=== PATIENT | female | born 1950 | race Caucasian/White ===

== ENCOUNTER 2024-06-19 13:58 | Outpatient (RCR) | payer MEDICARE, BC, SELFPAY ==
--- NOTE | 2024-06-19 16:51 | PT.OPEX ---
[facility] PT [facility] Outpatient Eval Start: 06/19/24 16:07 Freq: Status: Active Protocol: Document 06/19/24 16:13 MATTEO (Rec: 06/19/24 16:42 [email or web address] [id number]) E-signed By Chandrika Goldberg DPT Physical Therapy Outpatient Evaluation Insurance Information Recert Due Date 09/17/24 Insurance Name Medicare B Medical Diagnosis R knee OA, R knee pain R TKA 07/04/24 Treating Diagnosis R knee pain, R knee stiffness, R knee/LE weakness Referring MD Pacheco Subjective Subjective Patient report chronic R Knee pain and recent meniscus tear issues leading up to her R TKA scheduled for 07/04/24. She's had some prior PT for her knee, was doing some of the exercises until about a month ago as they were causing increased pain. Feeling better after stopping the exercises. She is not needing an AD. Has increased pain with twisting, pivoting, lifting activities. Lives with , he is able to assist as needed at home after surgery. OP PT is scheduled in [place] post op. Date of Surgery (If applicable) 07/04/24 Current Work Status Retired Assessment Assessment/Impression Patient is a 73 year old female with chronic R knee pain, R knee stiffness, R knee /LE weakness leading up to R TKA scheduled for 07/04/24. Patient seen in PT today for pre-op session to provide education/information on upcoming TKA surgery, safety information/HO, equipment instruction including use of FWW, and instruction in TKA exercises. Handouts issued for exercises, patient to perform them leading up to surgery. Reviewed PT/OT plan during hospital stay and patient is scheduled for OP PT post op in [place]. Patient lives with spouse, he is able to assist as needed after surgery. Patient lives in split entry home, 7 stairs with L railing up to main level. Tub shower on the main level, walk in shower on the lower level. Patient will try to borrow a FWW, may need one issued at d/c from the hospital. She has a polar ice unit to use after surgery. OP PT scheduled in [place]. Patient seen for pre-op session only. No further PT scheduled at this clinic. Plan of Care Rehabilitation Potential Good Physical Therapy Goals 1. Patient will be educated in TKA pre/post-op safety, mobility, and exercises with HOs provided within one visit with patient scheduled for OP PT post op rehab in [place] after R TKA surgery on 07/04/24. Coordination/Communication With Referral Source Frequency/Duration 1 pre-op session Patient Will Be Discharged From Therapy Completion of LTG(s),Skills Plateau,Independent w/HEP, Independently Progressing Evaluation Billing Untimed Code Treatment Minutes 35 Complexity Low Certification Information Initial Certification Date 06/19/24 Ending Certification Date 09/17/24 Provider Signature Required Yes Provider Signature Shows Agreement With POC & Medical Necessity Physician NPI Number Write NPI# Here Physician Comment/Change : Physician Signature & Date Requested Please Sign/Date Here
== END 2024-10-17 10:53 | disposition home or self-care (01) ==
PROVIDERS: Visit Provider Orthopaedic Surgery
DX: M17.11 Unilateral primary osteoarthritis, right knee (principal); Z96.651 Presence of right artificial knee joint; S83.231A Complex tear of medial meniscus, current injury, right knee, initial encounter; M25.561 Pain in right knee; M25.661 Stiffness of right knee, not elsewhere classified; R53.1 Weakness; Z51.89 Encounter for other specified aftercare
CPT/HCPCS: 97161

== ENCOUNTER 2024-07-04 06:02 | Day surgery (SDC) | payer MEDICARE, BC, SELFPAY ==
[2024-07-04] VITALS (16 sets, daily range): BP systolic 99–124; BP diastolic 48–70; PULSE 57–77; RESP 16–20; TEMP 36–36.4; O2SAT 93–100; BMI 28.0
[2024-07-04] MEDS: MIDAZOLAM HCL 1 MG/ML inj IVP (05:33)
--- OUTSIDE RECORDS SUMMARY | 2024-07-04 06:06 | XMS_ITS | Clinical Summary ---
Author Organization [facility] Address [place], [place] [address] Care Team Providers Care Weight Count Operator Name Role Phone Kamini Shelton DO Primary Care Provider [phone] Allergies Active Allergy Reactions Criticality Noted Date Comments Sulfa (Sulfonamide Antibiotics) Hives 04/2017 Medications Medication Sig Dispensed Refills Start Date End Date Status calcium carbonate/vitamin D3 (CALCIUM WITH VITAMIN D ORAL) Take 1 Tablet by mouth once daily. Active fexofenadine-pseudoeph edrine, 180-240 MG, (Pam-D 24 Hour) 180-240 mg per tablet Take 1 Tablet by mouth once daily. Takes during peak allergy season Active Spkoihdi-Hx-Vjg-Fe-FA tab tablet Take 1 Tablet by mouth once daily. 0 06/30/2022 Active azelastine 137 mcg/actuation (ASTELIN) nasal sprayIndications:Dysfu nction of left eustachian tube Inhale 1 Delmar into affected nostril(s) two times daily. 30 mL 5 09/07/2022 Active fexofenadine (Pam Allergy) 180 mg tablet Take 180 mg by mouth once daily with a meal. Do not crush or chew. Currently takes during none peak allergy season Active Lacto no.76/Bifido/FOS/larch (WOMEN'S PROBIOTIC ORAL) Take by mouth. Active SUMAtriptan (Imitrex) 50 mg tabletIndications:Migr cayla syndrome Take 1 Tablet (50 mg) by mouth 2 times daily if needed for Migraine. Give at minimum 2hrs apart. Max Dose: 200mg per 24hrs. 9 Tablet 2 11/18/2023 Active atorvastatin (LIPITOR) 10 mg tabletIndications:Hype rlipidemia, unspecified hyperlipidemia type Take 1 Tablet (10 mg) by mouth once daily with evening meal. 90 Tablet 3 11/18/2023 Active Active Problems Problem Noted Date Diagnosed Date Prediabetes 06/28/2018 Chronic rhinitis 06/01/2018 Migraine headache 06/24/2017 Osteopenia 06/24/2017 Hypercholesterolemia 04/18/2012 Encounters Date Type Department Care Team Description 06/29/2024 Telephone [facility] [address] [facility] [place] [address] Marilee George, Questions (sent fax) 06/26/2024 1:35 PM CDT Office Visit [facility] [address] [facility] [address] Marilee George, Pre-Op Exam ( RT KNEE MENISCUS REPAIR AND REPLACEMENT, 07/04/24, [facility], [place], ) 06/26/2024 Travel 06/02/2024 9:15 AM CDT Office Visit [facility] [address] [place] [address] Kamini Shelton DO Preoperative Exam (Surg 06/15/2024 Tara/Ortho) 06/02/2024 Orders Only [facility] [address] [place] [address] Kamini Shelton DO 1 scan: (1-Ord) SINUS BRADYCARDIA, 06/02/2024 06/02/2024 Travel 05/02/2024 8:40 AM CDT Office Visit [facility] [address] [place] [address] Adrian Restrepo MD Musculoskeletal Problem (Follow-up RIGHT knee - Chronic Pain/Review MRI ) 05/02/2024 Travel 04/18/2024 8:57 AM CDT - 04/18/2024 11:59 PM CDT Hospital Encounter [facility] [address] [place] [address] Adrian Restrepo MD Chronic pain of right knee 04/18/2024 Travel 04/11/2024 7:25 AM CDT Office Visit [facility] [address] [place], [place] [id number] Adrian Restrepo MD Musculoskeletal Problem (Follow-up RIGHT Knee pain) 04/11/2024 Travel from Last 3 Months Immunizations Name Administration Dates Next Due COVID-19 vaccine (Pfizer-Bio NTech 30mcg/0.3mL) 12YO+ BIVALENT PF, MDV 07/21/2022 COVID-19 vaccine (Pfizer-Bio NTech 30mcg/0.3mL) 12YO+ MICHEAL-SUCROSE PF, MDV 02/04/2022 COVID-19 vaccine (Pfizer-Bio NTech 30mcg/0.3mL) PF, MDV 12/28/2020,12/07/2020 DT (Age < 7 years) 09/02/2004 Influenza A (H1N1), Inactivated 07/18/2010 Influenza A (H1N1), Inactiva angeles (Age >=3 Years) 11/07/2009 Influenza Virus, Unspecified 06/24/2017, 08/11/2016,08/23/2015,2013,06/29/2013,06/29/2012,06/27/2011,1 ,08/18/2009 Influenza, High-dose Inactivated 019,09/24/2018,06/24/2017,2015 Influenza, IIV3 (Age >=3 years) 06/29/2012,07/08,07/25/2010 Influenza, IIV4 06/29/2013 Influenza, IIV4 (=>6mos) MDV 08/23/2015,07/12/20 14 Influenza, Inactivated AIIV4 (Age 65+ Years) Preserv Free 08/24/2023,08/19/2022,07/01/2021,2019 Pneumococcal Poly,23-Valent (Pneumovax) 06/10/2016 Pneumococcal conj 13-Valent (Prevnar 13) 05/09/2015 Td (Age >=7 Years) 09/02/2004 Tdap 05/18/2022,04/18/2012 Zoster (Shingrix-RZV, recombinant) 05/29/2020, Zoster (Zostavax-ZVL, live) 04/18/2012 Family History Medical History Relation Name Comments Cancer-prostate Father age 96 Congenital heart disease Father Heart Disease Father Dementia Mother Osteoporosis Mother Cancer-breast Paternal Aunt x3 Relation Name Status Comments Father Mother Alive Paternal Aunt Alive Paternal Grandmother Social History Tobacco Use Types Packs/Day Years Used Date Smoking Tobacco: Never Smokeless Tobacco: Never Tobacco Cessation:Counseling Given: No Alcohol Use Standard Drinks/Week Comments Yes 0 (1 standard drink = 0.6 oz pur e alcohol) once a month PHQ-2 Answer Date Recorded PHQ-2 TOTAL SCORE 0 11/18/2023 Social Connections Answer Date Recorded Frequency of Communication with Friends and Fami ly 0 11/18/2023 Financial Resource Strain Answer Date R ecorded Difficulty of Paying Living Expenses 3 11/18/2023 Difficulty of Paying Living Expenses Not on file 11/18/2023 Food Insecurity Answer Date Recorded Worried About Running Out of Food in the Last Ye ar 1 11/18/2023 Transportation Needs Answer Date Record ed Lack of Transportation (Medical) 1 11/18/2023 Housing Stability Answer Date Recorded Unable to Pay for Housing in the Last Year 1 11/18/2023 Sex and Gender Information Value Date Recorded Sex Assigned at Not on file Gender Identity Not on file Sexual Orientation Not on file Obstetrics History Last Filed Vital Signs Vital Sign Reading Time Taken Comments Blood Pressure 125/71 06/26/2024 1:40 PM CDT Pulse 70 06/26/2024 1:40 PM CDT Temperature 37.1 ??C (98.8 ??F) 06/30/2022 1:17 PM CD T Respiratory Rate 12 06/02/2024 9:16 AM CDT Oxygen Saturation 99% 06/26/2024 1:40 PM CDT Inhaled Oxygen Concentration - - Weight 71.8 kg (158 lb 6.4 oz) 06/26/2024 1:40 P M CDT Height 161 cm (5' 3.39) 06/26/2024 1:40 PM CDT Body Mass Index 27.72 06/26/2024 1:40 PM CDT Plan of Treatment Health Maintenance Due Date Last Done Comments RSV vaccine for adults or (1 - 1-dose 75+ series) 2023 COVID-19 vaccine series (7 - 2024-25 season) 2024 08/24/2023, 07/21/2022, 02/04/2022, Additional history exists Influenza for age 65+ 06/04/2024 08/24/2023 , 08/19/2022, 07/01/2021, Additional history exists Depression screening for age 12+ 11/18/2024 11/18/2023, 09/09/2022, 09/07/2022, Additional history exists Medicare Wellness for age 65+ 11/18/2024 11/18/2023, 09/07/2022 BMI (ht and wt on same day) for age 18+ 06/26/2025 06/26/2024, 06/02/2024, 11/18/2023 Lipids for age 45-75 11/18/2028 11/18/2023, 09/07/20 Colonoscopy through age 75 10/28/2031 10/28/2021 Tetanus booster 05/18/2032 05/18/2022, 04/03, 09/02/2004 Pneumococcal series for age 65+ Completed 6, 05/09/2015 Zoster (shingles) series for age 50+ Completed 05/29/2020, 03/19/2020, 04/18/2012 Tdap Completed 05/18/2022, 04/18/2012 Hepatitis C screening for ag e 18-79 Completed 09/07/2022 DEXA/DXA scan for age 65+ Completed 09/09/2022 Procedures Procedure Name Priority Date/Time Associated Diagnosis Comments CBC W PLT NO DIFF Routine 06/26/2024 2:1 4 PM CDT Preop examination CBC W PLT NO DIFF Routine 06/02/2024 10: 18 AM CDT Preop examination EKG 12 LEAD Routine 06/02/2024 12:00 AM CDT Preop examination MR KNEE RIGHT WO Routine 04/18/2024 9:41 AM CDT Chronic pain of right knee LIPID PANEL W REFLEX MEASURED LDL Routine 11/18/2023 10:59 AM [facility] Hyperlipidemia, unspecified hyperlipidemia type XR DXA BONE DENSITY 2 SITES AXIAL Routine 09/09/2022 9:16 AM [facility] Postmenopausal ANTI HCV Routine 09/07/2022 9:51 AM [facility] Need for hepatitis C screening test COLONOSCOPY 10/28/2021 11:02 AM [facility] from Last 3 Months or Most Recently Relevant to Health Maintenance Results * CBC W PLT NO DIFF (06/26/2024 2:14 PM CDT) Only the most recent of2 resultswithin the time period is included. WHITE BLOOD CELL COUNT 5.7 3.8 - 10.8 Thousand/u L [facility] RED BLOOD CELL COUNT 4.08 3.80 - 5.10 Million/uL [facility] HEMOGLOBIN 13.3 11.7 - 15.5 g/dL [facility] HEMATOCRIT 39.4 35.0 - 45.0 % [facility] MCV 96.6 80.0 - 100.0 fL [facility] MCH 32.6 27.0 - 33.0 pg [facility] MCHC 33.8 32.0 - 36.0 g/dL [facility] RDW 12.2 11.0 - 15.0 % [facility] PLATELET COUNT 184 140 - 400 Thousand/u L [facility] MPV 11.3 7.5 - 12.5 fL [facility] Blood BLOOD SPECIMEN / Unknown 06/26/2024 2:14 PM CDT 06/26/2024 2:14 PM CDT Marilee George DO HEMATOLOGY [facility] [address] [place] [address], [facility] [address] [place] [address] * EKG 12 LEAD (06/02/2024 12:00 AM CDT) Kamini Shelton DO EKG ORD * MR KNEE RIGHT WO (04/18/2024 9:41 AM CDT) Anatomical Region Laterality Modality KNEE R Magnetic Resonan ce 04/18/2024 1:18 PM CDT Impressions 04/18/2024 1:18 PM CDT 1. Extensive complex medial meniscal tearing. 2. Degenerative arthrosis of the knee with up to full-thickness cartilage loss within the medial compartment and high-grade partial to full-thickness cartilage abnormality focally within the patellofemoral compartment (grade 3 and 4 chondromalacia). 3. Large joint effusion with synovitis. 4. Popliteal cyst. 5. No acute fracture or acute ligamentous abnormality. Dictated by Devonte Turcios MD @ 04/18/2024 1:18:25 PM (Electronically Signed) Narrative 04/18/2024 1:18 PM CDT For Patients: ??As a result of the Century Cures Act, medical imaging exams and procedure reports are released immediately into your electronic medical record. ??You may view this report before your referring provider. ??If you have questions, please contact your health care provider. CLINICAL INDICATION: Chronic right knee pain. COMPARISON STUDIES: Radiographs from 09/03/2023. TECHNICAL: Noncontrast MRI of the right knee. 1.5 nawaf MRI scanner. Axial, sagittal and coronal T1, PD, PD FS and T2 FS images. FINDINGS: MEDIAL COMPARTMENT: Medial Meniscus: Complex tearing of the posterior horn and body of the medial meniscus. The body of the meniscus is medially extruded indicating loss of meniscal hoop stress. Meniscal tearing is well seen on coronal PD fat-sat images number 15 through 21 of series 6. Articular Cartilage: Marginal osteophyte formation. High-grade cartilage wear of the medial femoral condyle and medial tibial plateau with areas of subchondral bone marrow edema (grade 3 and 4). LATERAL COMPARTMENT: Lateral Meniscus: Mild fraying of the free edge of the lateral meniscus. Articular Cartilage: Mild heterogeneity of the articular cartilage compatible with mild softening. PATELLOFEMORAL COMPARTMENT: Articular Cartilage: Small area of high-grade chondromalacia of the proximal central trochlea (grade 3). High-grade chondromalacia of the medial patellar facet superiorly (grade 3 or 4 given the subchondral bone marrow edema). LIGAMENTS: Anterior Cruciate Ligament: Intact. Posterior Cruciate Ligament: Intact. MEDIAL COLLATERAL LIGAMENT AND POSTEROMEDIAL CORNER COMPLEX: Medial Collateral Ligament: Mild medial bowing of the MCL without disruption of the ligament. Medial Head of the Gastrocnemius and Semimembranosus Tendons: Normal. LATERAL COLLATERAL LIGAMENT COMPLEX AND POSTEROLATERAL CORNER COMPLEX: Fibular Collateral Ligament: Normal. Distal Biceps Femoris Tendon Complex: Normal. Iliotibial Band: Normal. Popliteus Tendon: Normal. Posterolateral Corner Capsule: Normal. EXTENSOR MECHANISM: Distal Quadriceps Tendon: Normal. Patellar Tendon: Normal. Medial Patellar Retinaculum and Medial Patellofemoral Ligament: Normal. Lateral Patellar Retinaculum: Normal. Normal patellar alignment. No patella nisreen. Normal trochlear depth. Normal lateral trochlear inclination. JOINT SPACE AND CAPSULE: Large joint effusion with synovitis. BONES AND SOFT TISSUES: Bone marrow edema about the medial compartment. No acute fracture. No avascular necrosis. 2.1 x 1.2 x 4.7 cm popliteal cyst. Subcutaneous edema is present. Procedure Note Devonte Turcios MD - 04/18/2024 For Patients: As a result of the Century Cures Act, medical imagingexams and procedure reports are released immediately into your electronicmedical record. You may view this report before your referring provider.If you have questions, please contact your health care provider. CLINICAL INDICATION: Chronic right knee pain. COMPARISON STUDIES: Radiographs from 09/03/2023. TECHNICAL: Noncontrast MRI of the right knee. 1.5 nawaf MRI scanner. Axial, sagittaland coronal T1, PD, PD FS and T2 FS images. FINDINGS: MEDIAL COMPARTMENT: Medial Meniscus: Complex tearing of the posterior horn and body of themedial meniscus. The body of the meniscus is medially extruded indicatingloss of meniscal hoop stress. Meniscal tearing is well seen on coronal PDfat-sat images number 15 through 21 of series 6. Articular Cartilage: Marginal osteophyte formation. High-grade cartilagewear of the medial femoral condyle and medial tibial plateau with areas ofsubchondral bone marrow edema (grade 3 and 4). LATERAL COMPARTMENT: Lateral Meniscus: Mild fraying of the free edge of the lateral meniscus. Articular Cartilage: Mild heterogeneity of the articular cartilagecompatible with mild softening. PATELLOFEMORAL COMPARTMENT: Articular Cartilage: Small area of high-grade chondromalacia of theproximal central trochlea (grade 3). High-grade chondromalacia of themedial patellar facet superiorly (grade 3 or 4 given the subchondral bonemarrow edema). LIGAMENTS: Anterior Cruciate Ligament: Intact. Posterior Cruciate Ligament: Intact. MEDIAL COLLATERAL LIGAMENT AND POSTEROMEDIAL CORNER COMPLEX: Medial Collateral Ligament: Mild medial bowing of the MCL withoutdisruption of the ligament. Medial Head of the Gastrocnemius and Semimembranosus Tendons: Normal. LATERAL COLLATERAL LIGAMENT COMPLEX AND POSTEROLATERAL CORNER COMPLEX: Fibular Collateral Ligament: Normal. Distal Biceps Femoris Tendon Complex: Normal. Iliotibial Band: Normal. Popliteus Tendon: Normal. Posterolateral Corner Capsule: Normal. EXTENSOR MECHANISM: Distal Quadriceps Tendon: Normal. Patellar Tendon: Normal. Medial Patellar Retinaculum and Medial Patellofemoral Ligament: Normal. Lateral Patellar Retinaculum: Normal. Normal patellar alignment. No patella nisreen. Normal trochlear depth. Normallateral trochlear inclination. JOINT SPACE AND CAPSULE: Large joint effusion with synovitis. BONES AND SOFT TISSUES: Bone marrow edema about the medial compartment. No acute fracture. Noavascular necrosis. 2.1 x 1.2 x 4.7 cm popliteal cyst. Subcutaneous edemais present. IMPRESSION: 1. Extensive complex medial meniscal tearing. 2. Degenerative arthrosis of the knee with up to full-thickness cartilageloss within the medial compartment and high-grade partial tofull-thickness cartilage abnormality focally within the patellofemoralcompartment (grade 3 and 4 chondromalacia). 3. Large joint effusion with synovitis. 4. Popliteal cyst. 5. No acute fracture or acute ligamentous abnormality. Dictated by Devonte Turcios MD @ 04/18/2024 1:18:25 PM (Electronically Signed) Adrian Restrepo MD MR * LIPID PANEL W REFLEX MEASURED LDL (11/18/2023 10:59 AM [facility]) CHOLESTEROL,TOTAL 160 100 - 199 mg/dL 11/18/2023 11:58 AM [facility] Comment: Cholesterol, Total Reference Ranges Desirable <200 mg/dL Borderline 200-239 mg/dL High >=240 mg/dL TRIGLYCERIDES 102 <150 mg/dL 11/18/2023 11:58 AM [facility] HDL CHOLESTEROL 59 >40 mg/dL 11:58 AM [facility] NON-HDL CHOLESTEROL 101 <145 mg/dl 11/18/2023 11:58 AM [facility] CHOL/HDL RATIO 2.71 <4.50 11/18/2023 11:58 AM [facility] LDL CHOLESTEROL 81 <=130 mg/dL 11/18/2023 11:58 AM [facility] VLDL CHOLESTEROL 20 <=30 mg/dL 11/18/2023 11:58 AM [facility] PROVIDER ORDERED STATUS RANDOM 11/18/2023 11:58 AM [facility] Blood BLOOD SPECIMEN / Unknown Venipuncture / Unknown 11/18/2023 10:59 AM [facility] 11/18/2023 11:01 AM [facility] Kamini Shelton DO CHEMISTRY [facility] [address] [place] [address] * XR DXA BONE DENSITY 2 SITES AXIAL [15561.1] (09/09/2022 9:16 AM [facility]) Anatomical Region Laterality Modality Spine, HIPS, HIPL, HIPR Computed Radiography Impressions 09/09/2022 5:14 PM [facility] Osteopenia with lowest T-score -1.7. ??Risk of fracture is not elevated. RECOMMENDATIONS: The National Osteoporosis Foundation recommends pharmacologic treatment for patients with T-scores of -2.5 or less, patients with prior history of fragility fractures, or patients with 10-year probability of greater than 3% at hips or greater than 20% of suffering major osteoporotic fractures. Recommend continued optimization of calcium and vitamin D intake through dietary means and/or supplementation and regular exercise. Repeat scan recommended in 5-7 years. Narrative 09/09/2022 5:14 PM [facility] For Patients: Results are automatically released to your [employer] account once available, in compliance with federal regulations. This means that you may see your results before your provider has had a chance to review them. Please allow 2-3 business days for your provider to comment on the results. XR DXA Bone Mineral Density (BMD) EXAM LOCATION: [address] [address] PATIENT NAME: Paola Granado DATE OF : 1950 EXAM DATE: 09/09/2022 REQUESTING PROVIDER: Fausto Barry, GENDER AT : female HEIGHT: 5' 2.6 (10/16/2021) WEIGHT: ??169 lb 14.4 oz (09/07/2022) MENOPAUSAL STATUS: Postmenopausal RACE/ETHNICITY: White RISK FACTORS: Family History of Osteoporosis CURRENT MEDICATION FOR BONE LOSS: NONE INDICATION: Postmenopausal COMPARISON DATE(S): None DXA scans are compared to prior studies for a patient only when the two (or more) studies were performed on the same scanner. It is not possible to compare data generated on one scanner to data from another because there are not standards in DXA equipment. This applies even if the two scanners are made by the same javascript developer. PROCEDURE: Dual-energy x-ray absorptiometry performed with routine technique. Reporting is completed in the form of a T-score. The T-score represents the standard deviation from peak bone mass based on young healthy adult. A Z-score is used for diagnosis in premenopausal women, and for men under the age of 50. FINDINGS: RESULT LUMBAR SPINE L1 - L4 BMD: 1.135 g/cm2 T-Score: - 0.3 RESULTS FEMUR Left femoral neck BMD: 0.806 g/cm2 T-Score: - 1.7 Right femoral neck BMD: 0.902 g/cm2 T-Score: - 1.0 Left hip BMD: 0.930 g/cm2 T-Score: - 0.6 Right hip BMD: 0.996 g/cm2 T-Score: - 0.1 WHO criteria: Normal: T-score at or above -1 SD Osteopenia: T-score between -1.1 and -2.4 SD Osteoporosis: T-score at or below -2.5 SD FRAX RISK CALCULATION (USED FOR OSTEOPENIA ONLY): 10-year probability of major osteoporotic fracture: 11.2%. 10-year probability of hip fracture: 2.3%. Fausto Barry DO DEXA * ANTI HCV (09/07/2022 9:51 AM [facility]) HEPATITIS C ANTIBODY Non-React shay Non-React shay 09/08/2022 1:14 AM [facility] Comment:Antibodies to HCV no t detected; does not exclude the possibility of exposure to HCV. Blood BLOOD SPECIMEN / Unknown Venipuncture / Unknown 09/07/2022 9:51 AM [facility] 09/07/2022 9:53 AM [facility] Fausto Barry DO SEND OUTS [facility] [address] [place] [address], * COLONOSCOPY (10/28/2021 11:02 AM W[facility] DIAL [facility]ON[facility]) 10/28/2021 11:0 2 AM [facility] Narrative Transcriptions FromJem bertrand MD - 10/28/2021 11:29 AM CST Patient Name: Paola Loy Procedure Date: 10/28/2021 Gender: Female Date of : 1950 Admit Type: Ambulatory Procedure: Colonoscopy Proceduralist: Santosh Amos MD [facility] Indications/Pre-Op Diagnosis: Screening for colorectal malignantneoplasm Medications: Propofol per Anesthesia Procedure Description: The procedure, indications, potential complications, (bleeding, perforation, infection, adverse medication reaction, missed lesionsor polyps) and alternatives available were explained to the patient, who appeared to understand and indicated this. Opportunity for questionswas provided and informed consent obtained. The colonoscope was passed through the anus and advanced to thececum, identified by appendiceal orifice and ileocecal valve. Thecolonoscopy was performed with ease. The patient tolerated the procedure well.The quality of the bowel preparation was evaluated using the BBPS ([place] Bowel Preparation Scale) with scores of: Right Colon = 3, Transverse Colon = 3 and Left Colon = 3 (entire mucosa seen well with noresidual staining, small fragments of stool or opaque liquid). The total BBPS score equals 9. Complications: No immediate complications. Estimated Blood Loss & Specimen: Estimated blood loss was minimal. Specimen collected: Yes and sent to Laboratory Findings: The perianal and digital rectal examinations were normal. Pertinent negatives include normal sphincter tone. Normal appearing ileocecal valve A 4 mm polyp was found in the transverse colon. The polyp wassessile. The polyp was removed with a cold snare. Resection and retrieval were complete. A few small-mouthed diverticula were found in the sigmoid colon. The exam was otherwise without abnormality on direct and retroflexion views. Impressions/Post-Op Diagnosis: - One 4 mm polyp in the transverse colon, removed with a cold snare. Resected and retrieved. - Diverticulosis in the sigmoid colon. - The examination was otherwise normal on direct and retroflexionviews. Recommendation: - Await pathology results. - Dr. Amos's office will contact you with biopsy/pathology results when available. Moderate Sedation: Deep sedation per anesthesia. Santosh Amos MD 10/28/2021 11:29:24 AM This report has been signed electronically. Note Initiated On: 10/28/2021 11:02 AM Jem Amos MD PROCEDURE ORD from Last 3 Months or Most Recently Relevant to Health Maintenance Advance Directives * Full Code (Latest Code Status on File) Date Activated Date Inactivated Comments 10/28/2021 7:37 AM 10/28/2021 2:24 PM Question Answer Comments Code Status Discussion: Reviewed Preferences Care Teams Weight Count Operator Relationship Specialty Start Date End Date Kamini Shelton DO [address] [place] [id number] PCP - General Family Practice 04/11/24
[2024-07-04] MEDS: ACETAMINOPHEN 500 MG TABLET 1000 MG PO ×2 (06:29→11:47)
[2024-07-04] MEDS: OXYCODONE (CR) 10 MG TAB.ER.12H PO (06:30)
[2024-07-04] MEDS: CELECOXIB 200 MG CAPSULE PO (06:30)
[2024-07-04] MEDS: SODIUM CHLORIDE 0.9 % (FLUSH) 10 ML SYRINGE IVF (06:30)
[2024-07-04] MEDS: LACTATED RINGERS 1000 ML 1,000 ML 100 ML IV ×2 (06:30→10:41)
[2024-07-04] MEDS: fentaNYL 100 MCG/2 ML inj IVP (07:11)
--- NOTE | 2024-07-04 07:19 | SUR.PREOP ---
TIME?OUT:?0711 PT/RN/MDA?VERIFICATION?OF?SURGICAL?SITE,?PROCEDURE,?AND?CONSENT OBTAINED?PRIOR?TO?INVASIVE?PROCEDURE.
[2024-07-04] MEDS: CEFAZOLIN 2 GM INJ IVP (07:49)
[2024-07-04] MEDS: TRANEXAMIC ACID 100 MG/ML INJ 1000 MG IV (07:50)
--- NOTE | 2024-07-04 08:09 | P.NB_ITS ---
Nerve Block Nerve Block Time Seen by Provider: 07:14 Date Seen: 07/04/24 Type of block requested by surgeon for post-operative analgesia: geniculars Side: right Time out performed: Yes Verification of patient name: Yes Verification of date of : Yes Site marking: site marked Name of person performing procedure: Jey Continuous monitoring Was continuous monitoring of O2 sat, B/P, marking room supervisor, recorded every 15 minutes?: Yes Procedure Checklist: sterile prep, needles and gloves Medications given in 5ml increments after negative aspiration: Ropivicaine %: 0.5 mL: 9 Needle gauge: 25 Patient tolerated procedure well: Yes Block Charges Block Charge (with Pro Fee): Genicular Nerve Block Use of Ultrasound Machine for Block: No
--- NOTE | 2024-07-04 08:09 | W.PM.NB ---
Nerve Block Nerve Block Time Seen by Provider: 07:14 Date Seen: 07/04/24 Type of block requested by surgeon for post-operative analgesia: adductor canal Side: right Time out performed: Yes Verification of patient name: Yes Verification of date of : Yes Site marking: site marked Name of person performing procedure: Jey Continuous monitoring Was continuous monitoring of O2 sat, B/P, quality assurance monitor body, recorded every 15 minutes?: Yes Procedure Checklist: sterile prep, needles and gloves Ultrasound guided. Images saved: Yes Medications given in 5ml increments after negative aspiration: Ropivicaine %: 0.5 mL: 20 Needle gauge: 20 Decadron (mg): 10 Precedex (mcg): 25 Patient tolerated procedure well: Yes Additional comments: Needle noted adjacent to nerve Block Charges Block Charge (with Pro Fee): Femoral Nerve Use of Ultrasound Machine for Block: Yes- US Guidance/pain block
--- NOTE | 2024-07-04 08:10 | W.ANESCHARGE ---
Anesthesia Charges Start Date/Time Anesthesia Start Date: 07/04/24 Anesthesia Start Time: 07:26 Stop Date/Time Anesthesia Stop Date: 07/04/24 Anesthesia Stop Time: 09:23 Summary Extremes of Age - Over 70 or under 1: MDA
--- NOTE | 2024-07-04 08:50 | CRLHL7_ITS ---
For Patients: As a result of the Century Cures Act, medical imaging exams and procedure reports are released immediately into your electronic medical record. You may view this report before your referring provider. If you have questions, please contact your health care provider. INDICATION: Post. TECHNIQUE: Two views of the right knee. FINDINGS: New right TKA. Components appear well seated. Adjacent postop soft tissue air. Dictated by Emigdio Nice MD @ 07/04/2024 3:25:17 PM (Electronically Signed)
--- NOTE | 2024-07-04 08:51 | P.ORPRC_ITS ---
Procedure Note Date of procedure: 07/04/24 Procedure: PREOPERATIVE DIAGNOSIS: Right knee osteoarthritis POSTOPERATIVE DIAGNOSIS: Right knee osteoarthritis NAME OF OPERATION: Right total knee arthroplasty SURGEON: Erasto Pacheco MD CASEWORK SPECIALIST: RADHA Villegas ANESTHESIA: Spinal ESTIMATED BLOOD LOSS: 0 mL COMPLICATIONS: None SPECIMENS: None DRAINS: None PREOPERATIVE ANTIBIOTICS: Ancef 1 g IMPLANTS: 1. J&J Attune #6 posterior stabilized femur 2. #6 fixed-bearing tibia 3. #6 posterior stabilized, 5 mm fixed-bearing polyethylene 4. 38 patella INDICATIONS: The patient is a 73-year-old with a longstanding history of severe, unrelenting right knee pain secondary to end-stage (grade IV) right knee osteoarthritis. Despite appropriate nonoperative management, including activity modification, anti-inflammatories, [id number] pain medication, bracing, physical therapy, and injections they continue to have pain and disability. Operative intervention was offered. The risks, benefits and expected outcomes were discussed in detail. These included but were not limited to: Infection, bleeding, injury to blood vessel or nerve, venous thromboembolism. All questions were answered to their satisfaction. Use of an virtual office assistant was necessary throughout the case for patient positioning and safety, soft tissue retraction, and closure. PROCEDURE: Spinal anesthesia was administered. The patient was placed supine on the operating table. The virtual office assistant made sure the patient was positioned appropriately. The lower extremity was prepped and draped in the usual sterile fashion. The limb was exsanguinated with the [place] bandage. The pneumatic tourniquet was inflated to 300 mmHg. A standard anterior incision was made with the knee in flexion. Subcutaneous dissection was sharply taken through fascial layer #1. Full-thickness medial and lateral flaps were elevated. The virtual office assistant retracted the soft tissues and protected them throughout the case. A standard subvastus approach was made. The patella was subluxed. The infrapatellar fat pad was debrided. The menisci and cruciate ligaments were sharply d?brided. Marginal osteophytes were d?brided with the rongeur. The drill was used to penetrate the femoral canal. The canal was aspirated and irrigated with pulse lavage. The intramedullary femoral guide was placed for a 5-degree valgus cut, removing 10 mm off the distal femur. The saw was used to make the cut. Whitesides line and the trans epicondylar axis were marked. The femoral sizing guide was pinned onto the distal femur. Three degrees of external rotation nicely parallels the transepicondylar axis. Pins were placed for posterior referencing. The four-in-one cutting guide was pinned onto the distal femur. The anterior, posterior, and chamfer cuts were made. The virtual office assistant protected the collateral ligaments. The box cutting guide was pinned. The box cuts were made. The boxed trial was placed and was an excellent fit. Drill holes for the lugs were made. Attention was then turned to the proximal tibia. The extramedullary tibial guide was placed for a neutral varus/valgus cut with 5 degrees of posterior slope, removing 2 mm based off the medial tibial surface. The virtual office assistant protected the collateral ligaments and the neurovascular bundle. The saw was used to make the cut. Trial components were placed. The knee was nicely balanced in both flexion and extension. The trial components were removed. The tray was placed in appropriate rotation, parallel to our tibial cutting pins. It was pinned by the virtual office assistant and the drill and the punch were used. The tray was removed. The punch was used again. We placed a bone plug in the femoral canal. Attention was then turned to the patella. [place] patellar thickness was 23 mm. The lobster claw resection guide was used with the 9.5 mm myra. The saw was used to make the cut. Drill holes were made by the virtual office assistant. The trial was placed and was an excellent fit. Cancellous surfaces were irrigated with pulse lavage and thoroughly dried by the virtual office assistant. We cemented the tibial component, then the femoral component. We impacted the 5 mm polyethylene onto the tibial tray. The knee was brought into full extension. We then cemented the patellar component. Excessive cement was removed. The cement was allowed to harden. The knee was taken through a range of motion and was found to be nicely balanced in both flexion and extension. The patella tracks centrally. The virtual office assistant did a three minute dilute Betadine solution soak. The virtual office assistant irrigated the wound with 3 liters of normal saline via pulse lavage. The virtual office assistant reapproximated the extensor mechanism with #1 Vicryl in an interrupted [id number] fashion. The virtual office assistant then ran the extensor mechanism with a #1 PDO Stratafix. The virtual office assistant closed the subcutaneous tissues with a 3-0 Stratafix and the skin with a running 3-0 Stratafix in a subcuticular fashion. Glue was used to seal the skin. The virtual office assistant placed a dry dressing. Sponge and needle counts were correct x2. The patient tolerated the procedure well. There were no apparent complications. They were carefully transferred to the hospital bed and taken to the postanesthesia care unit in satisfactory condition. PLAN: The patient will be mobilized with physical therapy. Aspirin will be used for DVT prophylaxis. They will be discharged to home once medically appropriate.
--- NOTE | 2024-07-04 10:50 | P.ANES_ITS ---
Anesthesia Charges Start Date/Time Anesthesia Start Date: 07/04/24 Anesthesia Start Time: 07:26 Stop Date/Time Anesthesia Stop Date: 07/04/24 Anesthesia Stop Time: 09:23 Summary Extremes of Age - Over 70 or under 1: RETAIL STOCK CLERK
[2024-07-04] MEDS: hydrOXYzine pamoate 25 MG CAPSULE PO (11:45)
== END 2024-07-04 13:59 | disposition home or self-care (01) ==
PROVIDERS: Visit Provider Orthopaedic Surgery
PROC: (CPT 27447; principal; 2024-07-04 07:15)
DX: M17.11 Unilateral primary osteoarthritis, right knee (principal); G89.18 Other acute postprocedural pain; R73.03 Prediabetes; E78.00 Pure hypercholesterolemia, unspecified; M85.80 Other specified disorders of bone density and structure, unspecified site
CPT/HCPCS: 27447; 01402; 64447; 64454; 73560; 76942; 97110; 97116; 97161; 97530; 99100; A9270; C1776; J0690; J1100; J2250; J2371; J2405; J2704; J2795; J3010; J3490; J7120